=== PATIENT | male | born 1955 | race African-American/Black ===

== ENCOUNTER 2021-02-14 10:30 | Emergency (ER) | payer MEDICAID, OTHER ==
[~2021-02-14] VITALS: Ht 185.4 cm; Wt 77.0 kg
[~2021-02-14 10:30] MED LIST: TRAM50TA
[2021-02-14] MEDS ORDERED: IBUPROFEN 600MG TABLET PO ONE (11:00)
[2021-02-14 12:30] VITALS: BP 125/78
[2021-02-14] MEDS ORDERED: T3 PO (12:47)
== END 2021-02-14 13:16 | disposition home or self-care (01) ==
LOC: ER 10:30
DX: S92.002A Unspecified fracture of left calcaneus, initial encounter for closed fracture (principal); I10 Essential (primary) hypertension; K21.9 Gastro-esophageal reflux disease without esophagitis; W11.XXXA Fall on and from ladder, initial encounter; Y93.89 Activity, other specified; Y92.89 Other specified places as the place of occurrence of the external cause
CPT/HCPCS: 29515; 73610; 73630; 99284; Z7610

== ENCOUNTER 2023-01-13 20:44 | Emergency (ER) | payer MEDICAID, MEDICARE ==
[~2023-01-13 20:44] MED LIST changes: +T3 PO
== END 2023-01-13 21:15 | disposition left against medical advice (07) ==
LOC: ER 20:44
DX: Z53.21 Procedure and treatment not carried out due to patient leaving prior to being seen by health care provider (principal)